=== PATIENT | female | born 1990 | race Caucasian/White ===

== ENCOUNTER 2019-03-17 18:12 | Emergency (ER) | payer OTHER ==
--- NOTE | 2019-03-17 19:31 | ER Document Report ---
ED Medical Screen (RME) - General Chief Complaint: Abdominal Pain Stated Complaint: FLANK PAIN Time Seen by Provider: 03/17/19 19:26 Mode of Arrival: Ambulatory Information source: Patient Notes: 28-year-old female presented to ED for complaint of left-sided abdominal pain that started in the pelvic area and is now wrapped up around to the left flank. Patient states she is 13 weeks . She states she did have an ultrasound at 9 weeks gestation and she does have a intrauterine . She states she is 3 para 1 she does not smoke drink or use any drugs last menstrual p eriod was November 17 and she is O+. I have greeted and performed a rapid initial assessment of this patient. A comprehensive ED assessment and evaluation of the patient, analysis of test results and completion of medical decision making process will be conducted by an additional ED providers. - HPI Onset: This morning Onset/Duration: Gradual, Worse Quality of pain: Sharp Severity: Moderate Pain Level: 4 Associated Symptoms: Nausea, Other - Left abdominal/flank pain Relieved by: Other - Switching positions Similar symptoms previously: No Recently seen / treated by doctor: No - Related Data Allergies/Adverse Reactions: No Known Allergies Allergy (Unverified 03/17/19 19:26) Physical Exam - Vital signs Vitals: Temp Pulse Resp BP Pulse Ox 97.8 F 80 20 137/84 H 100 03/17/19 18:19 03/17/19 18:19 03/17/19 18:19 03/17/19 18:19 03/17/19 18:19 Course - Vital Signs Vital signs: Temp Pulse Resp BP Pulse Ox 97.8 F 80 20 137/84 H 100 03/17/19 18:19 03/17/19 18:19 03/17/19 18:19 03/17/19 18:19 03/17/19 18:19
[2019-03-17 20:01] LABS: ABSOLUTE BASOPHILS # (AUTO) 0.1 10^3/uL (0.0-0.2); ABSOLUTE EOSINOPHILS # (AUTO) 0.3 10^3/uL (0.0-0.6); ABSOLUTE LYMPHOCYTES (AUTO) 1.8 10^3/uL (0.5-4.7); ABSOLUTE MONOCYTES (AUTO) 0.5 10^3/uL (0.1-1.4); ABSOLUTE NEUT (AUTO) 4.5 10^3/uL (1.7-8.2); BASOPHILS % (AUTO) 0.7 % (0-2); HEMATOCRIT 37.2 % (36.0-47.0); HEMOGLOBIN 12.8 g/dL (12.0-15.5); MEAN CORPUSCULAR HEMOGLOBIN 30.8 pg (27.0-33.4); MEAN CORPUSCULAR HGB CONC 34.3 g/dL (32.0-36.0); MEAN CORPUSCULAR VOLUME 90 fl (80-97); MONOCYTES % (AUTO) 7.2 % (3-13); PLATELET COUNT 309 10^3/uL (150-450); RED BLOOD COUNT 4.14 10^6/uL (3.72-5.28); RED CELL DISTRIBUTION WIDTH 14.6 % (11.5-14.0); SEGMENTED NEUTROPHILS % (AUTO) 63.1 % (42-78); TOTAL CELLS COUNTED % (AUTO) 100 %; WHITE BLOOD COUNT 7.2 10^3/uL (4.0-10.5)
[2019-03-17 20:16] LABS: ALBUMIN 3.9 g/dL (3.5-5.0); ALKALINE PHOSPHATASE 55 U/L (38-126); ANION GAP 8 (5-19); ASPARTATE AMINO TRANSFERASE 38 U/L (14-36); BILIRUBIN,DIRECT 0.1 mg/dL (0.0-0.4); BILIRUBIN,TOTAL 0.3 mg/dL (0.2-1.3); BLOOD UREA NITROGEN 7 mg/dL (7-20); CALCIUM 9.2 mg/dL (8.4-10.2); CARBON DIOXIDE 23 mmol/L (22-30); CHLORIDE 106 mmol/L (98-107); GLUCOSE 81 mg/dL (75-110); POTASSIUM 3.9 mmol/L (3.6-5.0); TOTAL PROTEIN 7.1 g/dL (6.3-8.2)
--- NOTE | 2019-03-17 21:25 | RADIOLOGY REPORT (SQ) ---
EXAM DESCRIPTION: US FOLLOW UP COMPLETED DATE/TME: 03/17/2019 19:32 CLINICAL HISTORY: 28 years Female left abd/pelvic pain with 13 week gestation COMPARISON: None. TECHNIQUE: Transabdominal duplex imaging performed to evaluate the pelvis. FINDINGS: Posterior placenta without abruption. heart rate 153 bpm. Cervix measures 3 cm. Estimated age 14 weeks one day. Subjectively normal DIMITRI. Variable presentation of the fetus. Probable anterior myometrial contraction during the exam. IMPRESSION: Living IUP corresponding to 14 weeks one day
[2019-03-17 21:36] LABS: APPEARANCE,URINE CLEAR; BILIRUBIN,URINE NEGATIVE (NEGATIVE); COLOR,URINE STRAW; GLUCOSE, URINE NEGATIVE (NEGATIVE); KETONES,URINE NEGATIVE (NEGATIVE); PROTEIN,URINE NEGATIVE (NEGATIVE); URINE SPECIFIC GRAVITY 1.005; UROBILINOGEN,URINE NEGATIVE mg/dL (<2.0)
--- NOTE | 2019-03-17 21:39 | RADIOLOGY REPORT (SQ) ---
EXAM DESCRIPTION: US RETROPERITONEUM COMPLETED DATE/TME: 03/17/2019 19:32 CLINICAL HISTORY: 28 years Female left abd/pelvic pain with 13 week gestation COMPARISON: None. TECHNIQUE: Transabdominal grayscale imaging performed to evaluate the kidneys and urinary bladder. FINDINGS: The visualized segments of the aorta and IVC are unremarkable. The right kidney measures 11.4 x 4.5 cm. No hydronephrosis mass or calculus. Left kidney measures 11.6 x 4.9 cm without mass. Mild dilatation of the renal pelvis measuring 11.5 mm. Bladder is distended with a volume of 158 mL. Neither ureteral jet is seen. IMPRESSION: Mild dilatation of the left renal collecting system measuring 11.5 mm No significant dilatation on the right
--- NOTE | 2019-03-17 23:27 | ER Document Report ---
ED GI/ - General Chief Complaint: Abdominal Pain Stated Complaint: FLANK PAIN Time Seen by Provider: 03/17/19 19:26 Mode of Arrival: Ambulatory Notes: 28-year-old G3, P1 approximately 14-week female Karl to the emergency department with left flank pain and left lower quadrant abdominal pain since this morning. Patient went to work thinking it was the normal pains of . Symptoms did not improve so after work she called her OB who recommended that she get seen for it. Patient states that the pain currently located in her left upper quadrant that wraps around to her left flank and was made worse when she received an ultrasound. Denies fevers or chills, denies nausea or vomiting, denies any abnormal vaginal bleeding, denies urinary symptoms or hematuria, denies acute weakness. Patient sees [facility] [facility] in [place] where she works. TRAVEL OUTSIDE OF THE [place] IN LAST 30 DAYS: No - Related Data Allergies/Adverse Reactions: No Known Allergies Allergy (Unverified 03/17/19 19:26) Past Medical History - General Information source: Patient - Social History Smoking Status: Never Smoker Frequency of alcohol use: None Drug Abuse: None Family History: None Patient has suicidal ideation: No Patient has homicidal ideation: No Review of Systems - Review of Systems Constitutional: See HPI EENT: No symptoms reported Cardiovascular: No symptoms reported Respiratory: No symptoms reported Gastrointestinal: See HPI Genitourinary: See HPI Female Genitourinary: See HPI Musculoskeletal: No symptoms reported Skin: No symptoms reported Hematologic/Lymphatic: No symptoms reported Neurological/Psychological: No symptoms reported Physical Exam - Vital signs Vitals: Temp Pulse Resp BP Pulse Ox 97.8 F 80 20 137/84 H 100 03/17/19 18:19 03/17/19 18:19 03/17/19 18:19 03/17/19 18:19 03/17/19 18:19 - Notes Notes: PHYSICAL EXAMINATION: Reviewed vital signs and charting by RN GENERAL: Alert, interacts well. No acute distress. HEAD: Normocephalic, atraumatic. EYES: Pupils equal and round. Extraocular movements intact. ENT: Oral mucosa moist, tongue midline. NECK: Full range of motion. Trachea midline. LUNGS: Clear to auscultation bilaterally, no wheezes, rales, or rhonchi. No respiratory distress. HEART: Regular rate and rhythm. No murmur ABDOMEN: soft, mild left upper quadrant tenderness to palpation no distention. Bowel sounds present BACK: Left CVAT EXTREMITIES: Moves all 4 extremities spontaneously. No edema, No cyanosis. PSYCH: Normal affect, normal mood. SKIN: Warm, dry, normal turgor. No rashes or lesions noted. Course - Re-evaluation Re-evalutation: 03/17/19 23:37 Patient well-appearing in no acute distress. Lab work unremarkable. Beta hCG value consistent with dating of . LMP November 17, 2018. Abdominal ultrasound showed a single live intrauterine with a heart rate of 153 EGA 14 weeks 1 day. Renal ultrasound showed mild dilatation of the left renal collecting duct system. Urinalysis had 1+ bacteria with 1 WBC, negative nitrite. We will treat her with Macrobid and have her follow-up with her [employer] [facility] on Wednesday. She is stable for discharge. - Vital Signs Vital signs: Temp Pulse Resp BP Pulse Ox 97.8 F 80 20 137/84 H 100 03/17/19 18:19 03/17/19 18:19 03/17/19 18:19 03/17/19 18:19 03/17/19 18:19 - Laboratory Result Diagrams: 03/17/19 19:40 03/17/19 19:40 Laboratory results interpreted by me: 03/17/19 03/17/19 19:40 19:40 RDW 14.6 H AST 38 H Beta HCG, Quant 99620.00 H Discharge - Discharge Clinical Impression: Urinary tract infection affecting care of mother in second trimester, antepartum Condition: Good Disposition: HOME, SELF-CARE Additional Instructions: Your urine shows findings consistent with a urinary tract infection. Please take all the antibiotics as directed even if your symptoms have improved. Please follow-up with your [employer] [facility] on Wednesday. Return to emergency room if you develop fever >101F, persistent vomiting, become lethargic, have severe pain in your sides, or any other symptoms that are concerning to you. Prescriptions: Nitrofurantoin/Nitrofuran Mac [Macrobid 100 mg Capsule] 1 tab PO BID #6 capsule
[2019-03-17 23:42] VITALS: BP 105/75
== END 2019-03-17 23:43 | disposition home or self-care (01) ==
LOC: ER 18:12
DX: O23.42 Unspecified infection of urinary tract in pregnancy, second trimester (principal); Z3A.17 17 weeks gestation of pregnancy
CPT/HCPCS: 36415; 76770; 76805; 80053; 81001; 84702; 85025; 99284

== ENCOUNTER 2020-01-07 17:59 | Emergency (ER) | payer OTHER ==
[2020-01-07 18:12] VITALS: BP 119/77
--- NOTE | 2020-01-07 18:19 | ER Document Report ---
ED Medical Screen (RME) - General Chief Complaint: Abdominal Pain Stated Complaint: ABDOMINAL PAIN,DIFFICULTY URINATING Time Seen by Provider: 01/07/20 18:12 Mode of Arrival: Ambulatory Information source: Patient Notes: 29-year-old female presented to ED for frequency urgency and left pelvic pain for the last 3 days. She states she does not have any burning is just she has to go frequently and urgently. She states she did have an umbilical hernia repair December 12 and she had a baby 3 months ago she has a history of kidney stones anxiety depression and reflux. He is alert oriented respirations regular nonlabored speaking in full sentences. I have greeted and performed a rapid initial assessment of this patient. A comprehensive ED assessment and evaluation of the patient, analysis of test results and completion of medical decision making process will be conducted by an additional ED providers. TRAVEL OUTSIDE OF THE [place] IN LAST 30 DAYS: No - Related Data Allergies/Adverse Reactions: shellfish derived Allergy (Severe, Verified 01/07/20 18:12) Anaphylaxis acetaminophen [From Fioricet] Allergy (Verified 01/07/20 18:12) Hives butalbital [From Fioricet] Allergy (Verified 01/07/20 18:12) Hives caffeine [From Fioricet] Allergy (Verified 01/07/20 18:12) Hives Physical Exam - Vital signs Vitals: Temp Pulse Resp BP Pulse Ox 98.1 F 75 18 119/77 99 01/07/20 18:10 01/07/20 18:10 01/07/20 18:10 01/07/20 18:10 01/07/20 18:10 Course - Vital Signs Vital signs: Temp Pulse Resp BP Pulse Ox 98.1 F 75 18 119/77 99 01/07/20 18:10 01/07/20 18:10 01/07/20 18:10 01/07/20 18:10 01/07/20 18:10
[2020-01-07 18:46] LABS: ABSOLUTE BASOPHILS # (AUTO) 0.1 10^3/uL (0.0-0.2); ABSOLUTE EOSINOPHILS # (AUTO) 0.1 10^3/uL (0.0-0.6); ABSOLUTE LYMPHOCYTES (AUTO) 1.6 10^3/uL (0.5-4.7); ABSOLUTE MONOCYTES (AUTO) 0.3 10^3/uL (0.1-1.4); ABSOLUTE NEUT (AUTO) 3.1 10^3/uL (1.7-8.2); EOSINOPHILS % (AUTO) 2.1 % (0-6); HEMATOCRIT 37.4 % (36.0-47.0); HEMOGLOBIN 12.4 g/dL (12.0-15.5); LYMPHOCYTES % (AUTO) 30.1 % (13-45); MEAN CORPUSCULAR HEMOGLOBIN 27.3 pg (27.0-33.4); MEAN CORPUSCULAR HGB CONC 33.2 g/dL (32.0-36.0); MEAN CORPUSCULAR VOLUME 82 fl (80-97); MONOCYTES % (AUTO) 6.5 % (3-13); PLATELET COUNT 312 10^3/uL (150-450); RED BLOOD COUNT 4.54 10^6/uL (3.72-5.28); RED CELL DISTRIBUTION WIDTH 15.3 % (11.5-14.0); SEGMENTED NEUTROPHILS % (AUTO) 60.3 % (42-78); TOTAL CELLS COUNTED % (AUTO) 100 %; WHITE BLOOD COUNT 5.2 10^3/uL (4.0-10.5)
[2020-01-07 19:05] LABS: ALBUMIN 4.2 g/dL (3.5-5.0); ALKALINE PHOSPHATASE 76 U/L (38-126); ANION GAP 8 (5-19); ASPARTATE AMINO TRANSFERASE 24 U/L (14-36); BILIRUBIN,DIRECT 0.2 mg/dL (0.0-0.4); BILIRUBIN,TOTAL 0.6 mg/dL (0.2-1.3); BLOOD UREA NITROGEN 11 mg/dL (7-20); CALCIUM 9.1 mg/dL (8.4-10.2); CARBON DIOXIDE 28 mmol/L (22-30); CHLORIDE 104 mmol/L (98-107); GLUCOSE 87 mg/dL (75-110); TOTAL PROTEIN 7.1 g/dL (6.3-8.2)
--- NOTE | 2020-01-07 19:24 | RADIOLOGY REPORT (SQ) ---
EXAM DESCRIPTION: U/S NON-OB PELVIS W/O DOP IMAGES COMPLETED DATE/TIME: 01/07/2020 7:04 pm REASON FOR STUDY: Left lower abdominal and pelvic pain COMPARISON: None. TECHNIQUE: Dynamic and static grayscale images acquired of the pelvis via transabdominal approach an d recorded on PACS. Additional selected color Doppler and spectral images recorded. LIMITATIONS: None. FINDINGS: UTERUS: Contour normal. No mass. ENDOMETRIAL STRIPE: No focal or generalized thickening. No masses. CERVIX: No nabothian cysts. RIGHT OVARY AND DOPPLER: Ovary not visualized. LEFT OVARY AND DOPPLER: Ovary not visualized. FREE FLUID: None noted. OTHER: No other significant finding. MEASUREMENTS: UTERUS: 10.5 x 3.8 x 4.8 cm ENDOMETRIAL STRIPE: 3 mm IMPRESSION: Unremarkable sonographic appearance of the uterus. Nonvisualization of the ovaries. TECHNICAL DOCUMENTATION: JOB ID: [id number] 2010 [employer]- All Rights Reserved Rev-09/03 Reading location - IP/workstation name: [email or web address]
[2020-01-07 19:28] LABS: APPEARANCE,URINE SLIGHTLY-CLOUDY; BILIRUBIN,URINE NEGATIVE (NEGATIVE); COLOR,URINE YELLOW; GLUCOSE, URINE NEGATIVE (NEGATIVE); KETONES,URINE NEGATIVE (NEGATIVE); LEUKOCYTE ESTERASE,URINE SMALL (NEGATIVE); NITRITE,URINE NEGATIVE (NEGATIVE); PROTEIN,URINE NEGATIVE (NEGATIVE); URINE SPECIFIC GRAVITY 1.028; UROBILINOGEN,URINE NEGATIVE mg/dL (<2.0)
[2020-01-07] MEDS ORDERED: METOCLOPRAMIDE HCL INJ/PF 10 MG/2 ML SDV IV ONE (20:54)
[2020-01-07] MEDS ORDERED: NORMAL SALINE 1000 ML 1,000 ML IV ONE (20:54)
[2020-01-07] MEDS ORDERED: KETOROLAC TROMETHAMINE INJ/PF 30 MG/1 ML SDV IV ONE (20:54)
[2020-01-07] MEDS ORDERED: DIPHENHYDRAMINE HCL 50 MG/ML VIAL IV ONE (20:54)
--- NOTE | 2020-01-07 20:56 | ER Document Report ---
ED GI/ - General Chief Complaint: Pelvic Pain Stated Complaint: ABDOMINAL PAIN,DIFFICULTY URINATING Time Seen by Provider: 01/07/20 18:12 Mode of Arrival: Ambulatory Notes: Patient is a 29-year-old female that comes emergency department for chief complaint of left lower abdominal pain for the past 3 days. She states she has had intermittent nausea as well. She states she feels like she cannot completely void as well although she denies dysuria or inability to urinate. She denies vaginal bleeding or discharge, denies flank pain, vomiting, fever. Patient states that after developing an umbilical hernia during , she delivered the baby 3 months ago, on 12/13/2019 she had an umbilical hernia repair. She states she has had irregular bowel movements and she is currently on Colace for this. Last bowel movement was yesterday. Remaining medical history includes kidney stones, anxiety/depression, GERD. TRAVEL OUTSIDE OF THE [place] IN LAST 30 DAYS: No - Related Data Allergies/Adverse Reactions: shellfish derived Allergy (Severe, Verified 01/07/20 18:12) Anaphylaxis acetaminophen [From Fioricet] Allergy (Verified 01/07/20 18:12) Hives butalbital [From Fioricet] Allergy (Verified 01/07/20 18:12) Hives caffeine [From Fioricet] Allergy (Verified 01/07/20 18:12) Hives Home Medications: Prilosec, Celexa, Junel Past Medical History - General Information source: Patient - Social History Smoking Status: Never Smoker Frequency of alcohol use: None Drug Abuse: None Lives with: Family Family History: None Renal/ Medical History: Reports: Hx Kidney Stones Review of Systems - Review of Systems Constitutional: No symptoms reported EENT: No symptoms reported Cardiovascular: No symptoms reported Respiratory: No symptoms reported Gastrointestinal: See HPI Genitourinary: See HPI Female Genitourinary: See HPI Musculoskeletal: No symptoms reported Skin: No symptoms reported Hematologic/Lymphatic: No symptoms reported Neurological/Psychological: No symptoms reported Physical Exam - Vital signs Vitals: Temp Pulse Resp BP Pulse Ox 98.1 F 75 18 119/77 99 01/07/20 18:10 01/07/20 18:10 01/07/20 18:10 01/07/20 18:10 01/07/20 18:10 - Notes Notes: GENERAL: Alert, interacts well. No acute distress. HEAD: Normocephalic, atraumatic. EYES: Pupils equal, round, and reactive to light. Extraocular movements intact. ENT: Oral mucosa moist, tongue midline. Oropharynx unremarkable. Airway patent. NECK: Full range of motion. Supple. Trachea midline. No lymphadenopathy. LUNGS: Clear to auscultation bilaterally, no wheezes, rales, or rhonchi. No respiratory distress. Non-tender chest wall. HEART: Regular rate and rhythm. No murmur ABDOMEN: No overt distention, mild generalized tenderness of the abdomen, no guarding, rigidity, or rebound tenderness. EXTREMITIES: Moves all 4 extremities spontaneously. No edema, normal radial and dorsalis pedis pulses bilaterally. No cyanosis. BACK: no cervical, thoracic, lumbar midline tenderness. No saddle anesthesia, normal distal neurovascular exam. Moves all extremities in full range of motion. NEUROLOGICAL: Alert and oriented x3. Normal speech. Cranial nerves II through XII grossly intact. Strength 5/5 in all extremities. PSYCH: Normal affect, normal mood. SKIN: Warm, dry, normal turgor. No rashes or lesions noted. Course - Re-evaluation Re-evalutation: Patient is well-appearing. Abdomen with questionable minimal distention and very mild generalized tenderness but otherwise unremarkable. I do not note any particular pelvic guarding, reassuring overall. Vital signs unremarkable. CBC, chemistry, urinalysis unremarkable, hCG is negative. Ultrasound unremarkable. KUB performed and shows no acute findings but per my read does appear to show retained stool, I suspect bowel is a source of patient's pain. I discussed details at length, patient very much agrees that this is most likely bowel, we discussed options, initially we are going to give her IV fluids and IV medications but then she declined and states she needs to go home, she requests a note to be off while she is taking the medications, she has already tried Colace with little success and is requesting something stronger. After discus rudy she was given lactulose. I discussed expectations, follow-up, return precautions. Patient states appreciation and agreement. Stable and well- appearing at time of discharge. - Vital Signs Vital signs: Temp Pulse Resp BP Pulse Ox 98.1 F 75 18 119/77 99 01/07/20 18:10 01/07/20 18:10 01/07/20 18:10 01/07/20 18:10 01/07/20 18:10 - Laboratory Result Diagrams: 01/07/20 18:30 01/07/20 18:30 Laboratory results interpreted by me: 01/07/20 01/07/20 18:30 19:00 RDW 15.3 H Ur Leukocyte Esterase SMALL H Discharge - Discharge Clinical Impression: Left sided abdominal pain, Dehydration Condition: Stable Disposition: HOME, SELF-CARE Additional Instructions: Your work-up shows some dehydration and retained stool in the bowel, however no concerning findings are noted otherwise, your ultrasound of the pelvis is unremarkable. I recommend improved hydration, the Bentyl if needed for cramping, Zofran if needed for nausea, and I also recommend the lactulose instead of the Colace for the next couple of days or until good results were obtained. Afterwards stop the lactulose and you may need to go back to the stool softener for a period of time before stopping this. Eat plenty of fiber. Follow-up with your provider for additional management. Come back if you worsen including vomiting, severe worsening pain, swelling of the abdomen, fever, or any other concerning or worsening symptoms. Prescriptions: Dicyclomine HCl [Bentyl 20 mg Tablet] 20 mg PO QID PRN #20 tablet PRN Reason: Lactulose 10 gm PO BID PRN #1 bottle PRN Reason: Ondansetron [Zofran Odt 4 mg Tablet] 1 - 2 tab PO Q4H PRN #15 tab.rapdis PRN Reason: For Nausea/Vomiting Forms: Return to Work
--- NOTE | 2020-01-07 21:51 | RADIOLOGY REPORT (SQ) ---
EXAM DESCRIPTION: [facility]: XR ABDOMEN 1 VIEW (KUB) CLINICAL HISTORY: 29 years Female; abd pain, nausea, recent surgery; COMPARISON: None. FINDINGS: Bowel gas pattern is within normal limits, with no significant distention. No pneumatosis. No suspicious calcifications. Bony structures are unremarkable. IMPRESSION: 1. No acute abdominal findings.
== END 2020-01-07 22:58 | disposition home or self-care (01) ==
LOC: ER 17:59
DX: R10.2 Pelvic and perineal pain (principal); R10.817 Generalized abdominal tenderness; R11.0 Nausea; E86.0 Dehydration; K21.9 Gastro-esophageal reflux disease without esophagitis; R19.4 Change in bowel habit; F41.9 Anxiety disorder, unspecified; F32.9 Major depressive disorder, single episode, unspecified; Z79.899 Other long term (current) drug therapy; Z87.442 Personal history of urinary calculi; Z87.892 Personal history of anaphylaxis; Z91.013 Allergy to seafood; Z88.8 Allergy status to other drugs, medicaments and biological substances; Z88.6 Allergy status to analgesic agent
CPT/HCPCS: 36415; 74018; 76856; 80053; 81001; 84703; 85025; 87086; 99285

== ENCOUNTER 2020-02-06 11:02 | Emergency (ER) | payer OTHER ==
[2020-02-06 11:07] VITALS: BP 118/77
--- NOTE | 2020-02-06 12:21 | ER Document Report ---
ED Medical Screen (RME) - General Chief Complaint: Flu Symptoms Stated Complaint: COUGH,SORE THROAT Time Seen by Provider: 02/06/20 12:09 TRAVEL OUTSIDE OF THE [place] IN LAST 30 DAYS: No - HPI Notes: 02/06/20 12:15 29-year-old female presents to the emergency room for possible Covid exposure 3 days ago she is now experiencing sore throat, chest congestion, dry cough, ear pain. 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 Patient states she did get her flu shot on 02/02/2020. Reports her last menstrual cycle was 01/02/2020 she is 4 months . Has not tried any exhr-aid-phvdfva medications. Denies any chest pain, shortness of breath, nausea, vomiting, diarrhea, fevers or chills I have greeted and performed a rapid initial assessment of this patient. A comprehensive ED assessment and evaluation of the patient, analysis of test results and completion of the medical decision making process will be conducted by additional ED providers. PHYSICAL EXAMINATION: GENERAL: Well-appearing, well-nourished and in no acute distress. HEAD: Atraumatic, normocephalic. EYES: Pupils equal round extraocular movements intact, conjunctiva are normal. ENT: Bilateral TM effusion, intact no erythema. Posterior pharynx with erythema, no exudate NECK: Normal range of motion CV: s1, s2 regular LUNGS: No respiratory distress - Related Data Allergies/Adverse Reactions: shellfish derived Allergy (Severe, Verified 02/06/20 12:09) Anaphylaxis acetaminophen [From Fioricet] Allergy (Verified 02/06/20 12:09) Hives butalbital [From Fioricet] Allergy (Verified 02/06/20 12:09) Hives caffeine [From Fioricet] Allergy (Verified 02/06/20 12:09) Hives Home Medications: CELEXA. PRILOSEC. CONTROL Past Medical History - Social History Chew tobacco use (# tins/day): No Frequency of alcohol use: None Drug Abuse: None Renal/ Medical History: Reports: Hx Kidney Stones Physical Exam - Vital signs Vitals: Temp Pulse Resp BP Pulse Ox 97.9 F 77 16 118/77 100 02/06/20 11:06 02/06/20 11:06 02/06/20 11:06 02/06/20 11:06 02/06/20 11:06 Course - Vital Signs Vital signs: Temp Pulse Resp BP Pulse Ox 97.9 F 77 16 118/77 100 02/06/20 12:09 02/06/20 11:06 02/06/20 11:06 02/06/20 11:06 02/06/20 11:06
== END 2020-02-06 13:05 | disposition left against medical advice (07) ==
LOC: ER 11:02
DX: J02.9 Acute pharyngitis, unspecified (principal); R05 Cough; Z79.3 Long term (current) use of hormonal contraceptives
CPT/HCPCS: 99281